=== PATIENT | female | born 1975 | race Caucasian/White ===

== ENCOUNTER → 2017-04-23 | Outpatient (CLI) | payer MEDICARE, MEDICAID ==
[~2017-04-23] MED LIST: CEPH500C3 PO; CPMMACHINE; DEPO150I IM; DICL1CAP4 PO; DICL75 PO; FISH100020 PO; FOLI1 PO; HYDR-3583 PO; HYDR10SO PO; METH2.5 PO; METH2.5T PO; METHO500 PO; MULT1TAB46 PO; PRED5TAB PO; ROBA500T PO; TRI-TAB PO; VITA100052 PO; VITA500T83 PO; WALKER WHEELS/F1 MIS; WALKER/YOUTH/FO1 MIS; [UNRECOGNIZED DRUG - CODE] PO
== END ==
LOC: CPRE 09:35
PROVIDERS: ATTEND Orthopaedic Surgery
DX: Z01.810 Encounter for preprocedural cardiovascular examination (principal); Z01.811 Encounter for preprocedural respiratory examination; Z01.812 Encounter for preprocedural laboratory examination; Z01.818 Encounter for other preprocedural examination; M06.861 Other specified rheumatoid arthritis, right knee

== ENCOUNTER 2017-05-01 05:33 | Inpatient (IN) | payer MEDICARE, MEDICAID ==
--- NOTE | 2017-04-22 17:37 | MH ---
cc: THEA GONZALEZ M.D. DATE OF ADMISSION 05/01/2017 ADMISSION DIAGNOSIS Severe rheumatoid arthritis of the right knee, varus deformity right knee, pain right knee and gait disturbance. HISTORY OF THE PRESENT ILLNESS The patient is a 41-year-old white female who has had a rather lengthy history of pain involving her right knee. She was diagnosed as having juvenile rheumatoid arthritis for which she has undergone extensive medical and surgical treatment over the subsequent years. Operative intervention has included bilateral total hip arthroplasties, a left ankle fusion, bilateral hand procedures, surgery of her left foot including bunionectomy and ongoing medical management for her arthritic condition. She presented to the undersigned physician in February of 2015 to be evaluated for ongoing pain about her right knee. Her x-ray studies had revealed severe degenerative changes with complete obliteration of both medial and lateral compartments. Findings and treatment options were reviewed. At that time the involvement of total knee arthroplasty was outlined and the patient was considering proceeding with operative treatment shortly thereafter. Unfortunately she elected not to proceed with any further disposition at that time and over the following 2 years remained symptomatic with pain about her right knee that essentially interfered with all ambulatory activities. She returned to the office in March of this year reporting that since last seen she had been followed by her primary care physician and was given subsequent medical clearance to proceed with surgery as had previously been discussed. The patient readily admitted that her knee symptoms were of such degree that she was more than eager to proceed in this direction. Her x-ray studies had revealed severe tricompartmental degenerative changes with subtotal obliteration of the joint space associated with generalized osteopenia and a varus deformity of at least 15 degrees magnitude. Findings and treatment options were again reviewed as well as the involvement of total knee arthroplasty being emphasized. The patient readily admitted that she had arrived at that point in time where she was ready to proceed in this direction and in compliance with her wishes she has currently been scheduled for admission in order that the above be accomplished. PAST MEDICAL HISTORY Her past medical history, hospitalizations and surgeries as noted include: 1. Bilateral total hip arthroplasty. 2. Bilateral hand surgery. 3. Left ankle fusion. 4. And bunionectomy of the left foot. The patient's medical illnesses are primarily related to her rheumatoid arthritis. MEDICATIONS Her current medications include: 1. Diclofenac 75 mg twice daily. 2. Folic acid 1 mg daily. 3. Hydrocodone 10 - 325 taken one to four times daily as needed for pain. 4. Methotrexate 2.5 mg 6 tablets weekly. 5. Robaxin 500 mg twice daily. 6. Aloe juice. 7. Everyday a multivitamin tablet. 8. Vitamin D3. 9. Fish oil. 10. Garlique pills. 11. Vitamin C. 12. Naprosyn. 13. Aleve. 14. Diclofenac is not being utilized. ALLERGIES THE PATIENT DENIES ANY KNOWN DRUG ALLERGIES. REVIEW OF SYSTEMS She does wear glasses. Denies headache, seizure or syncope has had some recent vertigo type episode. Auditory acuity intact. No tinnitus. No bleeding gums or dysphagia. Denies cough, shortness of breath, upper respiratory infection, pneumonia or tuberculosis. No angina or heart disease. Her appetite is reasonably good. Bowel movements regular. No hepatitis, gallbladder disease, ulcers or hemorrhoids. No urinary tract infection. No kidney stones. No history of fractures. No psychiatric illness. Her remaining review of symptoms is unremarkable and noncontributory. FAMILY HISTORY The patient has been for 4-1/2 years. She has no children. Her family history is positive for diabetes, iritis, psoriasis and breast cancer. SOCIAL HISTORY The patient completed a high school education with college credits thereafter. She has experimented with LSD in the past. Denies active use of tobacco. Ethanol consumption on rare occasion in the form of wine. PHYSICAL EXAMINATION 4 feet 11 inches, weight 155 pounds. GENERAL: An alert and oriented and responsive 41-year-old white female who sits quietly upon the examination table with no obvious distress. HEAD, EARS, EYES, NOSE, AND THROAT: Pupils are equally round and reactive to light. Extraocular movements full. Sclerae clear. External nares clear. External auditory canals clear. Dental intact. Mucous membranes pink and moist. Pharynx clear. NECK: Stiff with limited mobility in all ranges assessed indicated to be chronic in nature. Carotid pulse palpable bilaterally. Trachea midline. Thyroid without enlargement. LUNGS: Clear to auscultation and percussion. No CVA tenderness. No discomfort throughout the dorsal lumbar spine. HEART: Regular rhythm. No murmur or gallop. ABDOMEN: Soft, nontender. Bowel sounds present. PELVIC: Per primary care physician. EXTREMITIES: Right knee there is a mild fullness about the right knee that was consistent with redundancy of soft tissue and/or a thickened synovium. No appreciable joint line tenderness. 30-45 degree range of motion with obvious contracturing of the knee being appreciated. No apparent ligamentous instability. Karen test negative. Drawer sign cannot be adequately assessed. Distal sensory grossly intact. Mild antalgic gait. NEUROLOGICAL: Cranial nerves II-XII grossly intact. IMPRESSION Severe rheumatoid arthritis right knee, varus deformity right knee, pain right knee and gait disturbance. PLAN Right total knee arthroplasty. The nature of the planned surgical procedure, the potential complications and risks associated, the expectations of surgery and the consent form were thoroughly reviewed with the patient prior to admission to the hospital. Tamie has indicated her full understanding regarding all of the above and given consent to proceed with treatment as outlined. Medical evaluation and clearance for surgery completed by her primary care physician Dr. Warren Perez. ADDENDUM For clarification purposes outlined in the patient's previous treatment prior to her undergoing proposed surgery involving this hospitalization, it should be noted that following her original diagnosis of juvenile rheumatoid arthritis and then symptoms involving her right knee the patient has undergone extensive treatment in the past which has included prescribed anti-inflammatory medication which currently includes diclofenac and methotrexate as well as being on hydrocodone and Robaxin. In years past she has also received previous steroid injections as well as having had extensive courses of physical therapy. She has utilized both a walker and a cane in the past as ambulatory aids. Given the fact that she has become progressively more symptomatic with pain and that her current x-ray studies reveal severe, repeat severe, arthritic changes involving her right knee the patient has indicated her desire to proceed with surgery given the degree of incapacitation that she has been experiencing. In compliance with her wishes and request she has been scheduled for admission at this time in order that the above be accomplished. Please have this addendum attached to her current history and physical in order that it be available for her planned admission in the a.m. MD SAMMI Bui/KK /4:45 PM /10:38 AM
[~2017-05-01 05:33] MED LIST changes: -CEPH500C3 PO; -CPMMACHINE; -DEPO150I IM; -DICL75 PO; -FOLI1 PO; -HYDR10SO PO; -METH2.5 PO; -METHO500 PO; -WALKER WHEELS/F1 MIS; -WALKER/YOUTH/FO1 MIS
[2017-05-01] MEDS ORDERED: CHLORHEXIDINE GLUCONATE 2 % 1 PACK (2 CLOTHS) TOPICAL PRN (06:45)
[2017-05-01] MEDS ORDERED: METOPROLOL TARTRATE 25 MG TAB PO PRN (06:45)
[2017-05-01] MEDS ORDERED: LACTATED RINGER'S 1000 ML IV PRN (06:45)
[2017-05-01] MEDS ORDERED: POVIDONE IODINE 7.5% SCRUB 118 ML BOTTLE TOPICAL SCH (06:45)
[2017-05-01] MEDS ORDERED: POVIDONE IODINE 5% (ANTISEPSIS KIT) 4 APPLICATIONS EACH NARE PRN (06:45)
[2017-05-01] MEDS ORDERED: SODIUM CHLORID 0.9% 500 ML IV PRN (06:45)
[2017-05-01] MEDS ORDERED: ceFAZolin 2 GM PREMIX 50 ML IV SCH (06:45)
[2017-05-01] MEDS ORDERED: DEPO150I IM (06:54)
[2017-05-01 07:21] LABS: BETA HCG QUANT LESS THAN 1 MIU/ML (0-5)
[2017-05-01] MEDS ORDERED: ceFAZolin INJ 1,000 MG VIAL ONE (08:36)
--- NOTE | 2017-05-01 08:45 | RADRPT ---
EXAM DATE/TIME: 05/01/2017 08:17 [facility] COMPARISON: No previous studies available for comparison. 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 MEDICAL HISTORY : Rheumatoid arthritis. Vertigo. TB. Epilepsy. Congenital fusion of cervical spine. SURGICAL HISTORY : Bilateral hip replacements. Left bunionectomy. Bialteral hand surgeries. ENCOUNTER: Initial ACUITY: 1 day PAIN SCORE: 9/10 LOCATION: Cervical spine. FINDINGS: 4 images of the cervical spine were the best obtainable given the patient's lack of mobility. There i s diffuse bony fusion of the posterior elements of the entire cervical spine. Partial fusion of the a nterior disc space is in question from C3-C7. The natural lordosis is observed. No acute fracture or dislocation. Paraspinal soft tissues are normal. Images of the odontoid view are nondiagnostic second cj to the obscuration by the occiput. CONCLUSION: Complete fusion of the cervical spine as detailed above. Cuco Stout Jr., MD on May 01, 2017 at 8:36 Board Certified Radiologist. This report was verified electronically.
[2017-05-01] MEDS ORDERED: BUPIVACAINE HCL PF 0.5% 30 ML VIAL ONE (09:36)
[2017-05-01] MEDS ORDERED: TRANEXAMIC ACID 1 GM PRIOR TO PROCEDURE IV SCH ×2 (10:00)
[2017-05-01] MEDS ORDERED: KETAMINE HCL 500 MG/5 ML VIAL ONE (10:13)
[2017-05-01] MEDS ORDERED: ePHEDrine/NS 25 MG/5 ML SYR IV ONE (12:00)
[2017-05-01] MEDS ORDERED: PHENYLEPH/NS 1000 MCG/10 ML SYR IV ONE (12:00)
[2017-05-01] MEDS ORDERED: PHENYLEPHRINE HCL 10 MG/ML VIAL IV ONE (12:00)
[2017-05-01] MEDS ORDERED: MIDAZOLAM HCL 2 MG/2 ML VIAL IV ONE (12:00)
[2017-05-01] MEDS ORDERED: PROPOFOL 200 MG/20 ML AMP IV ONE (12:00)
[2017-05-01] MEDS ORDERED: DO NOT ADM ANY ANTICOAGULANT DRUGS PRN (12:52)
[2017-05-01] MEDS ORDERED: ACETAMINOPHEN/HYDROcodone 325 MG/5 MG TAB PO PRN (13:00)
[2017-05-01] MEDS ORDERED: TRANEXAMIC ACID 1 GM POST-OP IV SCH ×2 (13:00)
[2017-05-01] MEDS ORDERED: DOCUSATE SODIUM 100 MG CAP PO PRN (13:00)
[2017-05-01] MEDS ORDERED: TRANEXAMIC ACID INJ 1,000 MG in SODIUM CHLORIDE 0.9% INJ 100 ML IV SCH (13:00)
[2017-05-01] MEDS ORDERED: ACETAMINOPHEN 325 MG TAB PO PRN (13:00)
[2017-05-01] MEDS ORDERED: Post-op Orders (for Pharmacy) MISC XX ONE (13:00)
[2017-05-01] MEDS ORDERED: SODIUM CHLORIDE 0.9% FLUSH 10 ML FLUSH IV FLUSH PRN (13:00)
[2017-05-01] MEDS ORDERED: diphenhydrAMINE HCL 25 MG CAP PO PRN (13:00)
[2017-05-01] MEDS ORDERED: ZOLPIDEM TARTRATE 5 MG TAB PO PRN (13:00)
[2017-05-01] MEDS ORDERED: NALOXONE HCL 0.4 MG/ML AMP IV PUSH PRN (13:00)
[2017-05-01] MEDS ORDERED: *morphine SULFATE 8 MG/ML PERIprocedure ONLY ONE ×2 (13:07→13:16)
--- NOTE | 2017-05-01 13:15 | MP ---
cc: THEA PRETTY DATE OF SURGERY 05/01/2017 PREOPERATIVE DIAGNOSIS Severe rheumatoid arthritis of the right knee with varus deformity, pain of the right knee and gait disturbance. POSTOPERATIVE DIAGNOSIS Severe rheumatoid arthritis of the right knee with varus deformity, pain of the right knee and gait disturbance including flexion contracture right knee. PROCEDURE Right total knee arthroplasty. SURGEON Thea Pretty MD ANESTHESIA Spinal INDICATIONS This is a 41-year-old white female with a lengthy history of pain involving her right knee. She had been diagnosed as having juvenile rheumatoid arthritis for which she had undergone extensive medical and surgical treatment over the subsequent years which have included bilateral total hip arthroplasties left ankle fusion, bilateral hand procedures, surgery of her left foot including bunionectomy and ongoing management of her arthritic condition including her right knee. She had utilized various anti-inflammatory medications in the past, as well as receiving cortisone injections and undergoing therapy intervention, but became progressively more symptomatic with pain and limited mobility. She presented to the undersigned physician in February of 2015 and at that time her x-ray studies revealed severe degenerative changes with complete obliteration of both medial and lateral compartments. Findings and treatment options were reviewed at that time. The involvement of total knee arthroplasty was outlined in detail and at that time, the patient did give consideration for proceeding in this direction, but unfortunately additional medical issues intervened and for the following two years, she continued to conform to conservative management involving her right knee, but becoming progressively more symptomatic with pain and limitation of all ambulatory activities. She returned to the office in March of this year reporting that she was having ongoing difficulties involving her right knee. Her x-ray studies again revealed severe tricompartmental degenerative changes with subtotal obliteration of the joint space associated with generalized osteopenia and a varus deformity of at least 15 degrees magnitude. Findings and treatment options were again reviewed including the involvement of total knee arthroplasty. The patient readily admitted that her symptoms had progressed to a point in time where she was ready to proceed accordingly, especially in light of the fact that she felt she had exhausted all modes of conservative intervention. In compliance with her wishes, she was scheduled for admission at this time in order that the above be accomplished. FORMAT Following induction of satisfactory spinal anesthesia as completed per the department of anesthesia, a tourniquet was established around the proximal portion of the right lower extremity. The extremity proper was prepped and draped into a sterile field in the routine manner. Prior to the initiation of the actual procedure, the standard time-out protocol was completed. All parameters were appropriately addressed and confirmed with operating room personnel. It should be noted that the knee was maintained in approximately a 30 degrees flexed posture and with gentle manipulation, there was no passive mobility of the knee joint and could be elicited. Extremity was maintained in an elevated posture for approximately one minute and the tourniquet thus inflated to 250 mmHg pressure. A sharp skin incision was initiated midline over the anterior aspect of the knee and developed underlying subcutaneous tissue with hemostasis maintained by electrocautery. By deepening dissection, the anterior capsule was exposed. A medial capsulotomy was completed. Initially, the patella could not be subluxed in the lateral orientation because of a fibrotic adhesion to the underlying surface of the patella throughout the patellofemoral articulation. Utilizing a generalized debridement, as well as osteotomes to free the patellofemoral joint and mobilized it in a lateral orientation, progressively the patella could be mobilized laterally. A limited avulsed segment about the anterior femoral condyle was removed during the course of the mobilization. With progressive dissection and gentle manipulation, gradually flexion mobility of the knee was accomplished to near 90 degrees. Examination of the joint space revealed severe degenerative changes throughout the entire joint with significant erosion and deformation of bone and a prominent defect along the medial tibial plateau. No more than an attenuated remnant of the anterior cruciate ligament was appreciated. There was no medial meniscus structure and only a rim of the lateral meniscus. The articular surface of the patella was resected with a power saw. The three holed guide was utilized for establishing post holes. The limited portion of the lateral meniscus were sharply excised. A centering hole was placed in the distal aspect of the femur allowing positioning of the intramedullary guide. The distal femoral cutting jig was attached and the distal femur resected. AP measurement noted 57.5 mm sizing to be appropriate. The matching cutting block was positioned. Anterior, posterior, and chamfer cuts were completed. The tibial plateau was thereafter progressively mobilized and subluxed in an anterior orientation allowing positioning of the extramedullary guide. The tibial plateau was resected and measured with 67 mm sizing determined to be satisfactory. A trial reduction followed utilizing 57.5 mm anatomic femoral component, a 67 mm tibial base with 10 mm bearing insert trialed. The knee was brought to full extension and thereafter flexed to at least 95-100 degrees with stability maintained. A trial reduction followed utilizing a 31 mm standard patellar button. Once again, standard and appropriate tracking was noted. All trial components being removed, the remaining portion of the proximal tibia was prepared for insertion of the permanent component. The joint space was thoroughly lavaged with pulsating antibiotic solution. Hemostasis maintained by electrocautery. An autogenous bone plug was inserted into the distal femoral guide hole and thereafter a preparation of Palacos bone cement was utilized in inserting knee components in a sequential fashion which included a 67 mm fixed cruciate tibial plate to which 10 mm Vanguard tibial bearing insert was secured with locking stanford. The 57.5 mm Vanguard femoral component was firmly seated onto the distal femur, excess cement being removed, the knee was brought to full extension and thereafter the 31 mm standard three post patellar button was attached and maintained in place with patellar clamp while cement hardening was completed. Final range of motion assessment noted a definite improved and satisfactory mobility of the knee joint which was flexed to at least 105-110 degrees from full extension. Hemovac drain tubes were inserted through superior stab wounds. The capsule was repaired with 0 Vicryl suture. The remaining portion of the wound was closed in layers in the routine manner, skin margins being reapproximated with a running subcuticular 3-0 Vicryl suture over which Steri-Strips were applied. Xeroform gauze and a bulky dry sterile dressing were placed. Tourniquet was deflated after 67 minutes of tourniquet time, the extremity being supported in a canvas knee splint, anesthesia was discontinued. She was thereafter transferred to a hospital bed and returned to recovery room in satisfactory condition having tolerated her operative procedure well. ESTIMATED BLOOD LOSS Approximately 150 cc. IMPLANTS All implants were of the [employer] dobby looms pegger. MD SAMMI Bui/OZIEL /12:50 PM /1:09 PM
[2017-05-01] MEDS ORDERED: HYDROmorphone HCL PF 1 MG/ML VIAL ONE (13:22)
[2017-05-01] MEDS ORDERED: MISCELLANEOUS PHARMACY INFORMATION XX ONE (13:30)
[2017-05-01] MEDS ORDERED: *HYDROmorphone PF 1 MG VIAL PERIprocedural Use ONLY ONE (13:36)
[2017-05-01] MEDS: DEXT 5%-NACL 0.45% 1000 ML INJ 1,000 ML IV SCH ×3 (13:44→23:25)
[2017-05-01] MEDS: PCA - TOTAL MG MORPHINE DELIVERED PER SHIFT SCH ×2 (14:00→22:00)
--- NOTE | 2017-05-01 14:06 | RADRPT ---
EXAM DATE/TIME: 05/01/2017 13:12 [facility] COMPARISON: No previous studies available for comparison. INDICATIONS : Post op right knee surgery. MEDICAL HISTORY : rheumatoid arthritis, vertigo, TB epilepsy SURGICAL HISTORY : bilateral hip replacements, left bunionectomy, bilateral hand surgery ENCOUNTER: Initial ACUITY: 1 day PAIN SCORE: 0/10 LOCATION: Right knee FINDINGS: AP and lateral views of the knee following arthroplasty reveals a prosthesis in anatomic alignment. F racture is not appreciated. Surgical drain is evident CONCLUSION: Status post total knee arthroplasty. Edd Segal MD FACR Board Certified Radiologist. This report was verified electronically.
[2017-05-01] MEDS: ACETAMINOPHEN/HYDROcodone 325 MG/5 MG TAB PO PRN ×2 (14:20→22:06)
--- NOTE | 2017-05-01 16:03 | PD.CONS ---
HPI Service [facility] Hospitalists Consult Requested By Dr. Pretty Reason for Consult Medical management Primary Care Physician Warren Perez DO Diagnoses: History of Present Illness The patient is a 41-year-old female with history of rheumatoid arthritis who is admitted for right total knee arthroplasty. She is seen in PACU. Hospitalist consult was requested for medical management. The patient states that her only chronic medical problem is rheumatoid arthritis. She denies any history of cardiac problems, diabetes, hypertension, hyperlipidemia. She did develop hypotension following the surgery when physical therapy tried to sit her up in her bed. Her blood pressure improved with lying down. Review of Systems Constitutional: DENIES: Fever, Chills, Night Sweats Eyes: DENIES: Blurred vision, Vision loss Ears, nose, mouth, throat: DENIES: Hearing loss Respiratory: DENIES: Cough, Wheezing, Sputum production, Shortness of breath Cardiovascular: DENIES: Chest pain, Palpitations, Dyspnea on Exertion, Lower Extremity Edema Gastrointestinal: DENIES: Abdominal pain, Constipation, Diarrhea, Nausea, Vomiting Genitourinary: DENIES: Urinary frequency, Urinary incontinence, Urgency, Hematuria, Dysuria, Nocturia Musculoskeletal: COMPLAINS OF: Joint pain, DENIES: Muscle aches Integumentary: DENIES: Pruritus, Rash Hematologic/lymphatic: DENIES: Bruising Neurologic: DENIES: Headache Past Family Social History Allergies: Coded Allergies: aspirin (Verified Adverse Reaction, Mild, STOMACH UPSET, 05/01/17) Past Medical History Rheumatoid arthritis Past Surgical History Bilateral total hip arthroplasty Bilateral hand surgery Left ankle fusion Bunionectomy of the left foot Reported Medications Folic acid 1 mg daily Hydrocodone 10/325 4 times daily as needed Methotrexate 2.5 mg 6 tablets weekly on Saturday Robaxin 500 mg twice a day Aloe juice Multivitamin Vitamin D3 Fish oil Garlic pills Been seen Kym Ahn Family History Diabetes Social History Denies tobacco or illicit drug use. Social alcohol use. Physical Exam Vital Signs Vital Signs Date Time Temp Pulse Resp B/P (MAP) Pulse Ox O2 Delivery O2 Flow Rate FiO2 05/01/17 13:30 56 16 105/61 (76) 94 Room Air 05/01/17 13:15 54 16 98/64 (75) 96 Room Air 05/01/17 13:00 58 16 92/54 (67) 100 Nasal Cannula 2 05/01/17 12:52 97.4 56 16 80/56 (64) 100 Nasal Cannula 2 05/01/17 06:30 98.0 72 20 115/77 (90) 95 Physical Exam GENERAL: Well-nourished, well-developed female in no acute distress. HEENT: Normocephalic, atraumatic. Pupils equal, round and reactive. Extraocular movements intact. No scleral icterus. No injection or drainage. Oropharynx is clear. Mucous membranes are moist. CARDIOVASCULAR: Regular rate and rhythm without murmurs, gallops, or rubs. RESPIRATORY: Clear to auscultation. No wheezes, rales, or rhonchi. Breathing is non-labored. GASTROINTESTINAL: Abdomen soft, non-tender, nondistended. EXTREMITIES: No lower extremity edema. No calf tenderness. PSYCH: Alert and oriented x 3. Laboratory Laboratory Tests Test 05/01/17 06:40 Human Chorionic Gonadotropin, Quant LESS THAN 1 Imaging Last Impressions Knee X-Ray 05/01/17 1255 Signed Impressions: Service Date/Time: Monday, May 01, 2017 13:12 - CONCLUSION: Status post total knee arthroplasty. Edd Segal MD Cervical Spine X-Ray 05/01/17 0615 Signed Impressions: Service Date/Time: Monday, May 01, 2017 08:17 - CONCLUSION: Complete fusion of the cervical spine as detailed above. Cuco Stout Jr., MD Assessment and Plan Assessment and Plan 1. Rheumatoid arthritis: Patient has had chronic pain in multiple joints and his had multiple prior joint replacement surgeries. She is status post right total knee arthroplasty today. Management per orthopedic surgery. Continue pain control, bowel regimen. Restart Robaxin. 2. Hypotension: Postoperatively with raising the head of her bed. Continue IV fluids. Monitor BP. 3. DVT prophylaxis: Xarelto. Kaushik Rey MD May 01, 2017 16:03
[2017-05-01] MEDS ORDERED: *ONDANSETRON 4 MG VIAL PERIprocedural Use ONLY ONE (17:02)
[2017-05-01] MEDS: MORPHINE SULFATE 30 MG/30 ML PCA IV SCH (18:10)
[2017-05-01] MEDS: METHOCARBAMOL 500 MG TAB PO SCH (21:00)
[2017-05-01] MEDS: SODIUM CHLORIDE 0.9% FLUSH 10 ML FLUSH IV FLUSH SCH (21:00)
[2017-05-01] MEDS: ONDANSETRON HCL 4 MG/2 ML VIAL IVP PRN (22:09)
[2017-05-02] VITALS (8 sets, daily range): BP systolic 83–111; BP diastolic 52–67; PULSE 61–75; RESP 16–18; TEMP 96.2–98.6; O2SAT 94–100
[2017-05-02] MEDS: DEXT 5%-NACL 0.45% 1000 ML INJ 1,000 ML IV SCH ×2 (02:09→20:21)
[2017-05-02] MEDS: ACETAMINOPHEN/HYDROcodone 325 MG/5 MG TAB PO PRN ×4 (02:44→18:24)
[2017-05-02] MEDS: PCA - TOTAL MG MORPHINE DELIVERED PER SHIFT SCH ×3 (05:52→22:00)
[2017-05-02] MEDS: MORPHINE SULFATE 30 MG/30 ML PCA IV SCH (06:15)
[2017-05-02] MEDS ORDERED: HYDR-3583 PO (06:33)
--- NOTE | 2017-05-02 06:35 | HHI.FF ---
Face to Face Verification Diagnosis: (1) DJD (degenerative joint disease) of knee Physical Therapy Gait training Knee: Total knee, Protocol: Right, Full weight bearing Right LE Weight Bearing: WB as tolerated Right LE Range of Motion: Active ROM Nursing Dressing Changes: Daily dressing change I have seen patient Tamie Marie on 05/02/17. My clinical findings support the need for the requested home health care services because: Limited ability to care for self High risk of falls I certify that my clinical findings support that this patient is homebound because: Post-op weakness Unsteady gait/balance Unsafe to leave home unassisted Kevin Pretty MD May 02, 2017 06:35
[2017-05-02] MEDS ORDERED: CPMMACHINE (06:44)
[2017-05-02] MEDS ORDERED: WALKER WHEELS/F1 MIS (06:44)
[2017-05-02 07:07] LABS: HEMATOCRIT 27.2 % (35.0-46.0); REVIEW FLAG FINAL
[2017-05-02 07:34] LABS: BICARBONATE 26.9 MEQ/L (21.0-32.0); POTASSIUM 3.6 MEQ/L (3.5-5.1)
[2017-05-02] MEDS: SODIUM CHLORIDE 0.9% FLUSH 10 ML FLUSH IV FLUSH SCH ×2 (09:00→21:00)
[2017-05-02] MEDS: METHOCARBAMOL 500 MG TAB PO SCH ×2 (09:44→22:30)
[2017-05-02] MEDS: ONDANSETRON HCL 4 MG/2 ML VIAL IVP PRN (09:47)
[2017-05-02] MEDS: RIVAROXABAN 10 MG TAB PO SCH (11:41)
--- NOTE | 2017-05-02 15:30 | HHI.PR ---
Subjective Remarks Follow up hypotension. Patient has low blood pressure after receiving morphine. She states that she feels much better today. No lightheadedness/dizziness. No chest pain or dyspnea. Occasional nausea, but no vomiting. Objective Vitals Vital Signs Date Time Temp Pulse Resp B/P (MAP) Pulse Ox O2 Delivery O2 Flow Rate FiO2 05/02/17 12:00 97.5 61 18 83/52 (62) 94 05/02/17 10:50 98 21 05/02/17 08:00 98.3 71 18 100/66 (77) 99 05/02/17 06:15 17 05/02/17 05:52 17 05/02/17 04:00 96.8 69 17 92/67 (75) 100 05/02/17 00:00 96.7 61 17 92/67 (75) 100 05/01/17 22:00 17 05/01/17 21:50 Nasal Cannula 2.00 05/01/17 21:39 98 Nasal Cannula 2.00 05/01/17 18:13 14 05/01/17 18:10 18 05/01/17 18:00 98.0 64 16 112/70 (84) 95 Room Air I/O 05/01/17 05/01/17 05/01/17 05/02/17 05/02/17 05/02/17 07:00 15:00 23:00 07:00 15:00 23:00 Intake Total 1300 ml 1283 ml 1880 ml Output Total 105 ml 152 ml 140 ml Balance 1195 ml 1131 ml 1740 ml Intake Oral 500 ml 480 ml IV Total 783 ml 1400 ml Other 1300 ml Output Urine Total 2 ml Drainage Total 150 ml 140 ml Estimated Blood Loss 105 ml # Voids 3 # Bowel Movements 0 Result Diagram: 05/02/17 0600 05/02/17 0600 Imaging Last Impressions Knee X-Ray 05/01/17 1255 Signed Impressions: Service Date/Time: Monday, May 01, 2017 13:12 - CONCLUSION: Status post total knee arthroplasty. Edd Segal MD Cervical Spine X-Ray 05/01/17 0615 Signed Impressions: Service Date/Time: Monday, May 01, 2017 08:17 - CONCLUSION: Complete fusion of the cervical spine as detailed above. Cuco Stout Jr., MD Objective Remarks General: No acute distress. Heart: Regular rate and rhythm. No murmur. Lungs: Clear to auscultation bilaterally. No wheezes, rales, or rhonchi. Breathing is nonlabored. Abdomen: Soft, nontender, nondistended. Extremities: No lower extremity edema. Right lower extremity heavily bandaged, in CPM. Psych: Alert and oriented. Procedures 05/01/17 right total knee arthroplasty Urinary Catheter: No Vascular Central Line Catheter: No A/P Assessment and Plan 1. Rheumatoid arthritis: Patient has had chronic pain in multiple joints and his had multiple prior joint replacement surgeries. She is status post right total knee arthroplasty today. Management per orthopedic surgery. Continue pain control, bowel regimen. Continue Robaxin. 2. Hypotension: Intermittent low blood pressure, mostly related to when she receives morphine. Have counseled caution with pain medications. 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 Continue IV fluids. Monitor BP. 3. DVT prophylaxis: Xarelto. Kaushik Rey MD May 02, 2017 15:30
[2017-05-03] VITALS: BP 98/60; PULSE 78; RESP 18; TEMP 97.7; O2SAT 99
[2017-05-03] MEDS: DEXT 5%-NACL 0.45% 1000 ML INJ 1,000 ML IV SCH ×3 (04:22→21:04)
[2017-05-03] MEDS: MORPHINE SULFATE 30 MG/30 ML PCA IV SCH (04:29)
[2017-05-03] MEDS: PCA - TOTAL MG MORPHINE DELIVERED PER SHIFT SCH (06:00)
[2017-05-03 08:00] VITALS: BP 98/69; PULSE 78; RESP 18; TEMP 97.3; O2SAT 96
[2017-05-03] MEDS: SODIUM CHLORIDE 0.9% FLUSH 10 ML FLUSH IV FLUSH SCH ×2 (09:00→21:00)
[2017-05-03] MEDS: METHOCARBAMOL 500 MG TAB PO SCH ×2 (09:06→21:04)
--- NOTE | 2017-05-03 09:55 | HHI.PR ---
Subjective Remarks Follow up arthritis, hypotension. The patient states that she feels good this morning. Pain is well controlled. She has continued to have low blood pressures at times, but no lightheadedness or dizziness. Denies chest pain or dyspnea. Objective Vitals Vital Signs Date Time Temp Pulse Resp B/P (MAP) Pulse Ox O2 Delivery O2 Flow Rate FiO2 05/03/17 08:00 97.3 78 18 98/69 (79) 96 05/03/17 04:29 18 05/03/17 00:00 97.7 78 18 98/60 (73) 99 05/02/17 22:00 17 05/02/17 20:00 98.6 68 16 101/62 (75) 100 05/02/17 19:30 98.6 68 16 101/62 (75) 05/02/17 16:06 96.2 75 17 111/62 (78) 99 05/02/17 12:00 97.5 61 18 83/52 (62) 94 05/02/17 10:50 98 21 I/O 05/02/17 05/02/17 05/02/17 05/03/17 05/03/17 05/03/17 07:00 15:00 23:00 07:00 15:00 23:00 Intake Total 1880 ml 320 ml 720 ml 360 ml Output Total 140 ml 90 ml 80 ml 50 ml Balance 1740 ml 230 ml 640 ml 310 ml Intake Oral 480 ml 320 ml 720 ml 360 ml IV Total 1400 ml Drainage Total 140 ml 90 ml 80 ml 50 ml # Voids 3 1 2 1 # Bowel Movements 0 0 Result Diagram: 05/02/17 0600 05/02/17 06 Imaging Last Impressions Knee X-Ray 05/01/17 1255 Signed Impressions: Service Date/Time: Monday, May 01, 2017 13:12 - CONCLUSION: Status post total knee arthroplasty. Edd Segal MD Cervical Spine X-Ray 05/01/17 0615 Signed Impressions: Service Date/Time: Monday, May 01, 2017 08:17 - CONCLUSION: Complete fusion of the cervical spine as detailed above. Cuco Stout Jr., MD Objective Remarks General: No acute distress. Heart: Regular rate and rhythm. No murmur. Lungs: Clear to auscultation bilaterally. No wheezes, rales, or rhonchi. Breathing is nonlabored. Abdomen: Soft, nontender, nondistended. Extremities: No lower extremity edema. Right lower extremity heavily bandaged. Psych: Alert and oriented. Procedures 05/01/17 right total knee arthroplasty Urinary Catheter: No Vascular Central Line Catheter: No A/P Assessment and Plan 1. Rheumatoid arthritis: Patient has had chronic pain in multiple joints and his had multiple prior joint replacement surgeries. She is status post right total knee arthroplasty. Management per orthopedic surgery. Continue pain control, bowel regimen. Continue Robaxin. 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 2. Hypotension: Intermittent low blood pressure, mostly related to when she receives morphine. Have counseled caution with pain medications. Continue IV fluids. Monitor BP. 3. DVT prophylaxis: Xarelto. Discharge Planning Possible discharge home with home health care tomorrow per orthopedic surgery. Kaushik Rey MD May 03, 2017 09:55
[2017-05-03] MEDS: ACETAMINOPHEN/HYDROcodone 325 MG/5 MG TAB PO PRN ×3 (10:17→21:04)
[2017-05-03] MEDS: RIVAROXABAN 10 MG TAB PO SCH (10:20)
[2017-05-03 11:47] LABS: AUTOMATED NEUTROPHIL # 8.3 TH/MM3 (1.8-7.7); BASOPHIL % 0.2 % (0.0-2.0); EOSINOPHIL # 0.1 TH/MM3 (0-0.4); EOSINOPHIL % 0.9 % (0.0-4.0); HEMATOCRIT 27.3 % (35.0-46.0); HEMO FLAGS DIFF FINAL; LYMPH % 20.9 % (9.0-44.0); LYMPHOCYTE # 2.5 TH/MM3 (1.0-4.8); MEAN CORPUSCULAR HEMOGLOBIN 31.4 PG (27.0-34.0); MEAN CORPUSCULAR HGB CONC 33.7 % (32.0-36.0); MONO % 8.9 % (0.0-8.0); NEUT % 69.1 % (16.0-70.0); PLATELET COUNT 289 TH/MM3 (150-450); RED BLOOD COUNT 2.93 MIL/MM3 (4.00-5.30); RED CELL DISTRIBUTION WIDTH 14.1 % (11.6-17.2)
[2017-05-03 12:00] VITALS: BP 111/79; PULSE 75; RESP 18; TEMP 97.9; O2SAT 99
[2017-05-03 12:10] LABS: BICARBONATE 30.1 MEQ/L (21.0-32.0); POTASSIUM 3.1 MEQ/L (3.5-5.1)
[2017-05-03 16:00] VITALS: BP 104/64; PULSE 87; RESP 18; TEMP 98.5; O2SAT 97
[2017-05-03 20:00] VITALS: BP 106/79; PULSE 81; RESP 16; TEMP 97.9; O2SAT 99
[2017-05-03 21:37] VITALS: O2SAT 99
[2017-05-04] VITALS: BP 112/64; PULSE 99; RESP 18; TEMP 99.2; O2SAT 99
[2017-05-04 04:00] VITALS: BP 108/72; PULSE 90; RESP 16; TEMP 99.1; O2SAT 98
[2017-05-04] MEDS: ACETAMINOPHEN/HYDROcodone 325 MG/5 MG TAB PO PRN ×2 (04:49→09:33)
[2017-05-04] MEDS: DEXT 5%-NACL 0.45% 1000 ML INJ 1,000 ML IV SCH (06:00)
[2017-05-04 08:05] VITALS: BP 93/79; PULSE 98; RESP 18; TEMP 98.9; O2SAT 97
[2017-05-04] MEDS: SODIUM CHLORIDE 0.9% FLUSH 10 ML FLUSH IV FLUSH SCH (09:32)
[2017-05-04] MEDS: METHOCARBAMOL 500 MG TAB PO SCH (09:32)
--- NOTE | 2017-05-04 10:43 | HHI.PR ---
Subjective Remarks Patient reports she is feeling okay. Anxious to go home. Pain is controlled. Objective Vitals Vital Signs Date Time Temp Pulse Resp B/P (MAP) Pulse Ox O2 Delivery O2 Flow Rate FiO2 05/04/17 08:05 98.9 98 18 93/79 (84) 97 05/04/17 04:00 99.1 90 16 108/72 (84) 98 05/04/17 00:00 99.2 99 18 112/64 (80) 99 05/03/17 21:37 99 21 05/03/17 20:00 97.9 81 16 106/79 (88) 99 05/03/17 16:00 98.5 87 18 104/64 (77) 97 05/03/17 15:45 16 05/03/17 12:00 97.9 75 18 111/79 (90) 99 05/03/17 12:00 99 21 I/O 05/03/17 05/03/17 05/03/17 05/04/17 05/04/17 05/04/17 07:00 15:00 23:00 07:00 15:00 23:00 Intake Total 360 ml 620 ml 720 ml 240 ml Output Total 50 ml Balance 310 ml 620 ml 720 ml 240 ml Intake Oral 360 ml 620 ml 720 ml 240 ml Drainage Total 50 ml # Voids 1 3 3 2 # Bowel Movements 0 1 Result Diagram: 05/03/17 1040 05/03/17 1040 Objective Remarks GENERAL: This is a well-nourished, well-developed patient, in no apparent distress. CARDIOVASCULAR: Normal rate and regular rhythm without murmurs, gallops, or rubs. RESPIRATORY: Good respiratory efforts. Breath sounds equal and clear to auscultation bilaterally. GASTROINTESTINAL: Abdomen soft, non-tender, non-distended. Normal active bowel sounds MUSCULOSKELETAL: Status post right knee arthroplasty. Postoperative dressing appear intact. Neurovascularly intact distally. NEURO: Alert & Oriented x4 to person, place, time, situation. Moves all ext x4 PSYCH: Appropriate mood and affect. Procedures 05/01/17 right total knee arthroplasty A/P Assessment and Plan Status post right knee arthroplasty/Rheumatoid arthritis: Patient has had chronic pain in multiple joints and his had multiple prior joint replacement surgeries. She is status post right total knee arthroplasty. -Pain control, rehabilitation efforts. -Cleared for discharge home with home health. DVT prophylaxis: Xarelto. Loida Phan MD May 04, 2017 10:43
[2017-05-04 12:27] VITALS: O2SAT 96
[2017-05-04] MEDS ORDERED: WALKER/YOUTH/FO1 MIS (13:09)
[2017-05-04] MEDS: RIVAROXABAN 10 MG TAB PO SCH (13:28)
--- NOTE | 2017-05-04 19:38 | MD ---
cc: JAYRO PEREZ D.O., [place] ADMISSION DATE: 05/01/2017 DISCHARGE DATE: 05/04/2017 ADMITTING DIAGNOSIS Severe rheumatoid arthritis of the right knee, varus deformity right knee, pain right knee, gait disturbance. DISCHARGE DIAGNOSIS Severe rheumatoid arthritis of the right knee, varus deformity right knee, pain right knee, gait disturbance. Flexion contracture right knee. HISTORY The patient is a 41-year-old white female with a lengthy history of pain involving her right knee. She was diagnosed as having juvenile rheumatoid arthritis for which she had undergone extensive medical management and surgical treatment over the years which included bilateral total hip arthroplasties, left ankle fusion, bilateral hand procedures, surgery of the left foot including bunionectomy and ongoing medical management of her arthritic condition. Over the years her treatment about the right knee had included continued use of anti-inflammatory medication, steroid injections and therapy intervention. She presented to the undersigned physician in February of 2015, describing ongoing pain about her right knee. Her x-ray studies revealed severe degenerative changes with complete obliteration of both medial and lateral compartments. Findings and treatment options were reviewed and at that time the involvement of total knee arthroplasty was outlined in detail. The patient was considering proceeding with surgery at that time but because of additional medical issues she was unable to proceed with any further disposition. She returned to the office in March of this year reporting that she was remaining symptomatic with pain about her right knee for which she is having considerable difficulty conforming to all ambulatory activities. She readily admitted that she was at a point in time where her symptoms were of such a degree that she was eager to proceed with surgery as had previously been discussed. Her current x-ray studies again revealed severe tricompartmental degenerative changes with subtotal obliteration of the joint space associated with generalized osteopenia and a varus deformity with at least 15 degrees magnitude. Findings and treatment options were again reviewed including the involvement of total knee arthroplasty for which the patient indicated her full understanding and expressed her desire to proceed accordingly. In compliance with her wishes she was scheduled for admission at this time in order that the above be accomplished. Her physical examination at the time of admission revealed a mild fullness about the right knee that was consistent with redundancy of soft tissue and thickened synovium. There was no joint line tenderness. The knee was maintained in approximately 30-45 degrees of a flexed posture without any appreciable mobility of the knee being accomplished. Distal sensory was grossly intact. Antalgic gait. HOSPITAL COURSE Prior to admission to the hospital the patient had undergone medical evaluation and clearance for surgery as completed by her primary care physician, Dr. Jayro Perez. She was taken to the operating room on 01 May 2017 and on that date underwent a right total knee arthroplasty completed in an uncomplicated manner. The patient was noted to have tolerated her operative procedure well with postoperative course stable thereafter. Hemoglobin/hematocrit assessment postoperatively was 9.2 and 27.2 respectively. The patient was progressively mobilized under the guidance of physical therapy being permitted weightbearing to tolerance about the right lower extremity. Follow up examination of her surgical wound noted to be intact healing favorably, no evidence of infection. Medical followup per the hospitalist service. DVT prophylaxis initiated. support services manager consulted to assist with discharge planning. The patient had indicated her desire to be discharged home and continue her rehabilitation on an outpatient basis. Plans were finalized in this regard and pending medical clearance she was scheduled for discharge on the third postoperative day at which time she was noted making steady progress with regards to her rehab program. She was scheduled to be seen in office followup in approximately 4 weeks. Her condition at the time of discharge was stable. Prognosis favorable. MEDICATIONS Discharge medications included: 1. Hydrocodone 10/325, #60. 2. Aspirin 325 milligrams 1 tablet twice daily for 3, weeks #30. MD SAMMI Bui/EO /7:08 AM /7:30 PM
== END 2017-05-04 14:22 | disposition home health service (06) | DRG 470 ==
LOC: HSDI 05:33 → N06B 20:09
PROVIDERS: ADMIT Orthopaedic Surgery; ATTEND Orthopaedic Surgery
PROC: 0SRC0J9 Replacement of Right Knee Joint with Synthetic Substitute, Cemented, Open Approach (ICD-10-PCS; principal; 2017-05-01 09:57)
DX: M08.09 Unspecified juvenile rheumatoid arthritis, multiple sites (principal); M85.80 Other specified disorders of bone density and structure, unspecified site; M21.161 Varus deformity, not elsewhere classified, right knee; I95.81 Postprocedural hypotension; I95.2 Hypotension due to drugs; T40.2X5A Adverse effect of other opioids, initial encounter; Y92.239 Unspecified place in hospital as the place of occurrence of the external cause; Z96.643 Presence of artificial hip joint, bilateral; Z98.1 Arthrodesis status
CPT/HCPCS: 72040; 73560; 80048; 84702; 85014; 85018; 85025; 86850; 86900; 86901; 88305; 88311; 94150; C1776; J0690; J1170; J2250; J2270; J2370; J2405; L1830